=== PATIENT | male | born 1995 | race Caucasian/White ===

== ENCOUNTER 2024-09-28 00:40 | Emergency (ER) | payer SELFPAY ==
[~2024-09-28] VITALS: Ht 180.3 cm; Wt 78.0 kg
[2024-09-28 00:56] VITALS: O2SAT 100
[2024-09-28 03:01] VITALS: BP 121/82; PULSE 88; RESP 17; TEMP 36.8; O2SAT 100
== END 2024-09-28 03:02 | disposition home or self-care (01) ==
LOC: ER 00:51
DX: S06.0XAA Concussion with loss of consciousness status unknown, initial encounter (principal); G44.309 Post-traumatic headache, unspecified, not intractable; W19.XXXA Unspecified fall, initial encounter; Y93.89 Activity, other specified; Y92.89 Other specified places as the place of occurrence of the external cause; Y99.8 Other external cause status
CPT/HCPCS: 99281